=== PATIENT | female | born 1975 | race Two or more races ===

== ENCOUNTER → 2017-05-24 | Outpatient (REF) | payer OTHER | LOC: M SFHCLERA 14:09 | PROVIDERS: ATTEND Nurse Practitioner Family | DX: J02.9 Acute pharyngitis, unspecified (principal) ==

== ENCOUNTER 2022-03-08 16:40 | Emergency (ER) | payer OTHER ==
[~2022-03-08] VITALS: Ht 162.6 cm; Wt 86.0 kg
[2022-03-08 16:46] VITALS: BP 146/102
[2022-03-08] MEDS ORDERED: FLUO20CA22 PO (17:02)
[2022-03-08] MEDS ORDERED: LISI20TA33 PO (17:02)
[2022-03-08] MEDS ORDERED: BUPR-71 (17:02)
[2022-03-08] MEDS ORDERED: LIDOCAINE VISCOUS 2% SOLN 15ML UDC SS ONE (21:05)
[2022-03-08 21:48] LABS: BASO # 0.1 10^3/uL (0.0-0.2); BASO % 0.5 % (0.0-1.0); EOS # 0.2 10^3/uL (0.0-0.5); EOS % 1.8 % (0.0-3.0); HEMATOCRIT 43.8 % (36.0-47.0); HEMOGLOBIN 14.6 g/dl (12.0-15.5); LYMPH # 3.4 10^3/uL (1.5-5.0); LYMPH % 28.1 % (24.0-44.0); MEAN CORPUSCULAR HEMOGLOBIN 31.4 pg (27.0-33.0); MEAN CORPUSCULAR HGB CONC 33.3 g/dl (32.0-36.5); MEAN CORPUSCULAR VOLUME 94.2 fl (80.0-96.0); MONO # 0.7 10^3/uL (0.0-0.8); NEUTROPHILS # 7.5 10^3/uL (1.5-8.5); NEUTROPHILS % 63.2 % (36.0-66.0); PLATELET COUNT, AUTOMATED 392 10^3/uL (150-450); RED BLOOD COUNT 4.65 10^6/uL (4.00-5.40); WHITE BLOOD COUNT 11.9 10^3/uL (4.0-10.0)
[2022-03-08] MEDS ORDERED: ISOVUE-370 76% 100ML VIAL As Ordered ONE (22:05)
[2022-03-08 22:08] LABS: ERYTHROCYTE SEDIMENTATION RATE 31 mm/hr (0-20)
[2022-03-08] MEDS ORDERED: methylPREDNISolone 125MG 2ML VIAL IV ONE (23:45)
[2022-03-08] MEDS ORDERED: KETOROLAC 30 MG/ML 1ML VIAL IV ONE (23:45)
[2022-03-08] MEDS ORDERED: IBUP-1022 PO (23:49)
[2022-03-08] MEDS ORDERED: PRED20TA PO (23:49)
[2022-03-08] MEDS ORDERED: LIDO2SOL17 PO (23:49)
== END 2022-03-09 00:38 | disposition home or self-care (01) ==
LOC: M ED 16:40
DX: J03.90 Acute tonsillitis, unspecified (principal); I10 Essential (primary) hypertension; F31.9 Bipolar disorder, unspecified; Z91.018 Allergy to other foods; Z79.899 Other long term (current) drug therapy
CPT/HCPCS: 70491; 80047; 83605; 85025; 85652; 86140; 87040; 96374; 99283; J1885; J2930; Q9967